=== PATIENT | female | born 1985 | race Caucasian/White ===

== ENCOUNTER → 2019-10-27 17:36 | Outpatient (CLI) | payer MEDICAID, SELFPAY ==
[2019-10-27 19:00] LABS: Alanine Aminotransferase 29 U/L (12-78); Albumin Level 4.4 g/dl (3.5-5.0); Albumin/Globulin Ratio 1.6 (1.1-1.8); Alkaline Phosphatase 129 U/L (38-126); Anion Gap 18.3 mEq/L (5-15); Aspartate Amino Transferase 27 U/L (14-36); Bilirubin,Total 0.4 mg/dl (0.2-1.3); Blood Urea Nitrogen 12 mg/dl (7-17); Calcium 9.9 mg/dl (8.4-10.2); Carbon Dioxide 22 mmol/L (22.0-30.0); Chloride 103 mmol/L (98-107); Estimated Glomerular Filt Rate 98 ml/min (>60); GFR (African American) 118 ML/MIN (>60); Globulin 2.8 g/dL (1.3-3.2); Glucose 163 mg/dl (74-100); Potassium 4.3 mmoL/L (3.5-5.1); Sodium 139 mmol/L (136-145); Total Protein,Serum 7.2 g/dl (6.3-8.2)
[2019-10-27 19:47] LABS: Hemoglobin A1C 6.5 % (4.0-6.0)
== END ==
PROVIDERS: Visit Provider Family Medicine
DX: E11.9 Type 2 diabetes mellitus without complications (principal); Z79.84 Long term (current) use of oral hypoglycemic drugs
CPT/HCPCS: 80053; 83036

== ENCOUNTER → 2020-09-11 11:29 | Outpatient (CLI) | payer MEDICAID, SELFPAY ==
--- NOTE | 2020-09-11 11:33 | XR_ITS ---
PROCEDURE: XR KUB CLINICAL INDICATION: KIDNEY STONE COMPARISON: No exams were available for comparison FINDINGS: There are numerous small right renal calculi in both upper and lower pole. No obvious left renal or ureteral calculi. IMPRESSION: Right nephrolithiasis Dictated by: Mukesh Lacy MD 09/11/2020 12:45 Mukesh Lacy MD in [place] 09/11/2020 12:45
== END ==
PROVIDERS: PCP Nurse Practitioner; Visit Provider Urology
DX: N20.0 Calculus of kidney (principal)
CPT/HCPCS: 74018

== ENCOUNTER → 2020-09-19 09:17 | Outpatient (CLI) | payer MEDICAID, SELFPAY ==
[2020-09-19 09:18] LABS: MANUAL DIFFERENTIAL MANUAL DIFFERENTIAL (MANUAL DIFF)
[2020-09-19 09:54] LABS: Basophils # 0.1 K/mm3 (0-0.2); Basophils % 0.8 % (0.1-2.0); Eosinophils # 0.3 K/mm3 (0.0-0.4); Eosinophils % 3.6 % (0.1-12.0); Hematocrit 38.1 % (37.0-47.0); Hemoglobin 12.5 g/dL (12.2-16.2); Lymphocytes # 2.6 K/mm3 (0.7-4.5); Lymphocytes % 27.8 % (10-50); Mean Corpuscular HGB Conc 32.7 g/dL (31.8-35.4); Mean Corpuscular Hemoglobin 28.3 pg (27.0-31.2); Mean Corpuscular Volume 86.4 fl (81-99); Mean Platelet Volume 7.7 fl (7.4-10.4); Monocytes # 0.6 K/mm3 (0.1-1.0); Neutrophils # 5.8 K/mm3 (1.8-7.8); Neutrophils % 61.8 % (37.0-80.0); Platelet Count 268 K/mm3 (142-424); Red Blood Count 4.41 M/mm3 (4.20-5.40); Red Cell Distribution Width 14.1 % (11.5-17.5); White Blood Count 9.4 K/mm3 (4.8-10.8)
[2020-09-19 10:25] LABS: Chloride 105 mmol/L (98-107)
[2020-09-19 10:26] LABS: Potassium 4.6 mmoL/L (3.5-5.1); Sodium 141 mmol/L (136-145)
[2020-09-19 10:29] LABS: Anion Gap 14.6 mEq/L (5-15); Blood Urea Nitrogen 9 mg/dl (7-17); Calcium 8.9 mg/dl (8.4-10.2); Carbon Dioxide 26 mmol/L (22.0-30.0); Estimated Glomerular Filt Rate 97 ml/min (>60); GFR (African American) 117 ML/MIN (>60); Glucose 146 mg/dl (74-100)
[2020-09-19 10:48] LABS: HCG,Quantitative < 2 mIU/ml (0-5.42)
[2020-09-19 14:20] LABS: Lymphocytes % 24 % (10-50); Monocytes % 5 % (2-9); Neutrophils % 71 % (42-76); Platelet Estimate Normal; RBC Morphology Normal; Total Cells Counted 100
== END ==
PROVIDERS: Visit Provider Urology
DX: Z01.812 Encounter for preprocedural laboratory examination (principal); Z11.52 Encounter for screening for COVID-19; N20.0 Calculus of kidney
CPT/HCPCS: 36415; 80048; 84702; 85007; 85014; 85018; 85048; 85049; U0003

== ENCOUNTER 2020-09-21 06:51 | Day surgery (SDC) | payer MEDICAID, SELFPAY ==
[2020-09-18 11:55] VITALS: BMI 35.2
[2020-09-21] VITALS (10 sets, daily range): BP systolic 111–136; BP diastolic 62–74; PULSE 84–105; RESP 16–20; TEMP 36.1–36.6; O2SAT 91–98
[2020-09-21 07:43] LABS: POC Glucose,Bedside 127 (70-110)
--- NOTE | 2020-09-21 08:47 | P.PN_ITS ---
[facility] Anesthesia Checklist - Patient Identification Patient Identification: Arm Band - Structural Data Admitted From: Home Planned Operative Procedure/s: Right ESWL Consent for Planned Operative Procedure(s) Verified: Yes Verified Documents: Surgical Consent, History and Physical - NPO Status Verified Time NPO: 00:00 - Additional verifications Anesthesia Reactions: No Hx Blood Transfusions: No Blood Transfusion Reaction: No - Airway Assessment C-Spine Mobility Assessed: Yes (mp2) TMJ Mobility Assessed: Yes Dentition: Good Dentition - Neurological Assessment Level of Consciousness: Awake, Alert - Anesthesia Plan Anesthesia Risk discussed: Yes Anesthesia Plan: Verified ASA Class: III Anesthesia Type: General [facility] History I have reviewed the patient's past medical history: Yes Medical History: Reports:: Anxiety, Depression, Diabetes Mellitus Type 2, Gastroesophageal Reflux Disease(GERD), Hypertension, Kidney Stones, Urinary Tract Infection Denies:: Cancer, Diabetes Mellitus Type 1, Internal Pacemaker, MRSA, Seizures *Have you ever received a pneumonia vaccine?: No *Have you received a flu vaccine this season?: Yes Other Medical History: Denies: Blood Transfusion Reaction Anesthesia experience/problems:: nac Laterality Cases: Bilateral: Myringotomy (Ear Tubes) Other Surgeries: Yes: Other. No: Pacemaker Amputation: No Fractures: No - *Social History Last grade of school completed: Advanced degree Smoking Status: Never smoker Alcohol Intake: never Substance Use Type: denies use *Occupational Status:: disabled Housing: house Household Members: family *Travel in the last 8 weeks: None - Psychiatric History Pschychiatric History:: Reports:: Anxiety, Depression Family Hx:: Diabetes, Kidney Disease, Stroke
--- NOTE | 2020-09-21 09:54 | HMH.ANESI ---
[facility] [place] Anesthesia Record Part I Intake, IV Amount: 900 Estimated blood loss (mL): 0 Urine output (mL): 0 Blood Pressure: 120/74 SaO2: 92 Pulse Rate: 102 Respiratory Rate: 16 Temperature: 98 F Patient is:: Drowsy, Stable Stable to PACU at:: 09:50
--- NOTE | 2020-09-21 09:59 | P.OP_ITS ---
Date of procedure: 09/21/20 Pre-op Diagnosis:: Right renal calculi Post-op Diagnosis:: Same Procedure performed:: Right ESWL Surgeon:: Steve Conti MD [employer]:: Steve Quiroz Anesthesia: LMA Estimated blood loss (mL): 0 Clinical Note:: 34-year-old white female with recent left renal colic is passed a small 2 mm distal left ureteral stone also noted to have right nephrolithiasis. He presents today for urologic management of multiple right renal calculi. Operative findings:: Stones noted in the right renal pelvis middle pole and lower pole. Operative note:: Room after informed consent was obtained. He was placed on the operating table in the supine position and general anesthesia administered. In the supine position she was padded appropriately and the lithotripter head brought up into position and under fluoroscopy the right kidney was imaged. There were calculi in the right renal pelvis and the right middle pole. Lithotripsy began at the most superior superior stone and 1200 shockwaves delivered to the the stone and another 1200 shockwaves delivered to the renal pelvic stone. Right lower pole stone was not visualized well and was not treated. A total of 3000 shockwaves delivered. Patient tolerated the procedure well there are no complications. She was transported to the recovery room without complication. Condition: stable Disposition: PACU Specimens:: None Complications:: None
[2020-09-21 10:09] LABS: POC Glucose,Bedside 150 (70-110)
--- NOTE | 2020-09-21 11:20 | P.PN_ITS ---
[facility] Anesthesia Record Part II Discharge Time: 10:20 Destination: Surgical Day Care (OP Surgery) PACU nurse assessment reviewed?: Yes Patient Condition:: Good Anesthesia Complications:: None Swallowing reflex intact?: Yes Cyanosis?: No Blood Pressure: 132/71 Pulse Rate: 86 Temperature: 97 F Mental Status: Alert & Oriented Pain level:: 0 Nausea and/or vomitting:: None Intake, IV Amount: 0
== END 2020-09-21 11:01 | disposition home or self-care (01) ==
LOC: OR 06:52
PROVIDERS: PCP Nurse Practitioner; Visit Provider Urology
PROC: (CPT 50590; principal; 2020-09-21 08:00)
DX: N20.0 Calculus of kidney (principal); N20.1 Calculus of ureter; Z87.440 Personal history of urinary (tract) infections; Z87.442 Personal history of urinary calculi; N13.2 Hydronephrosis with renal and ureteral calculous obstruction; E11.9 Type 2 diabetes mellitus without complications; I10 Essential (primary) hypertension; F41.9 Anxiety disorder, unspecified; F32.9 Major depressive disorder, single episode, unspecified; K21.9 Gastro-esophageal reflux disease without esophagitis; Z79.899 Other long term (current) drug therapy
CPT/HCPCS: 50590; 82962; 96374; J2405

== ENCOUNTER → 2020-10-18 14:14 | Outpatient (CLI) | payer MEDICAID, SELFPAY ==
--- NOTE | 2020-10-18 14:18 | XR_ITS ---
PROCEDURE: XR KUB CLINICAL INDICATION: kidney stone COMPARISON: CR XR KUB from 09/11/2020 FINDINGS: Small calculi are present in the mid lower aspect of the right kidney. No obvious ureteral calculi. No acute bony findings. Nonspecific bowel gas pattern. IMPRESSION: No change right nephrolithiasis Dictated by: Mukesh Lacy MD 10/18/2020 15:56 Mukesh Lacy MD in [place] 10/18/2020 15:56
== END ==
PROVIDERS: PCP Nurse Practitioner; Visit Provider Urology
DX: N20.0 Calculus of kidney (principal)
CPT/HCPCS: 74018

== ENCOUNTER → 2020-10-18 16:13 | Outpatient (CLI) | payer MEDICAID, SELFPAY ==
[2020-11-02 10:24] LABS: Specimen Type NOT PROVIDED
[2020-11-02 10:25] LABS: Composition Please see comment; Size 2X2
== END ==
PROVIDERS: Visit Provider Urology
DX: N20.0 Calculus of kidney (principal)
CPT/HCPCS: 82370

== ENCOUNTER → 2020-12-21 14:00 | Outpatient (CLI) | payer MEDICAID, SELFPAY ==
--- NOTE | 2020-12-21 14:06 | XR_ITS ---
PROCEDURE: XR KUB CLINICAL INDICATION: kidney stone COMPARISON: CR XR KUB from 10/18/2020 FINDINGS: Faint right renal calculi are present in the upper and lower pole. No obvious ureteral calculi. There is a linear area of small calcific densities at the L1-L2 level centrally and on the left which could be due to material within the stomach or could be due to chronic pancreatitis. CT may confirm. IMPRESSION: No change right nephrolithiasis. Multiple small focal hyperdensities in the central upper abdomen which could be due to material within the stomach or sequela from chronic pancreatitis Dictated by: Mukesh Lacy MD 12/21/2020 16:01 Mukesh Lacy MD in [place] 12/21/2020 16:01
== END ==
PROVIDERS: PCP Nurse Practitioner; Visit Provider Urology
DX: N20.0 Calculus of kidney (principal)
CPT/HCPCS: 74018

== ENCOUNTER → 2021-08-30 13:13 | Outpatient (CLI) | payer MEDICAID, SELFPAY ==
--- NOTE | 2021-08-30 13:19 | XR_ITS ---
FINAL REPORT CLINICAL HISTORY: F/U KIDNEY STONE COMPARISON: December 21, 2020 FINDINGS: SINGLE VIEW ABDOMEN A single view of the abdomen was obtained. Bowel gas and stool obscure the renal outline. There are no abnormally dilated loops of small bowel. There is a moderate to large amount of retained stool in the colon. There is no definite renal stone identified. IMPRESSION: No definite renal stone identified. Constipation. Reviewed, Interpreted and Dictated by Anderson Healy III, MD Transcribed by Sol Cheema Authenticated by Anderson Healy III, MD on 08/30/2021 02:39:39 PM [facility]
== END ==
PROVIDERS: Visit Provider Urology
DX: N20.0 Calculus of kidney (principal)
CPT/HCPCS: 74018

== ENCOUNTER → 2021-09-17 16:39 | Outpatient (CLI) | payer MEDICAID, SELFPAY ==
[2021-11-02 00:11] LABS: Ca oxalate dihydrate 50
== END ==
LOC: LAB 16:39 → LAB.DROPOF 16:45
PROVIDERS: Visit Provider Urology
DX: N20.0 Calculus of kidney (principal)
CPT/HCPCS: 82370

== ENCOUNTER → 2021-12-31 09:07 | Outpatient (CLI) | payer MEDICAID, SELFPAY ==
--- NOTE | 2021-12-31 09:09 | XR_ITS ---
FINAL REPORT CLINICAL HISTORY: kidney stone COMPARISON: 08/30/2021 FINDINGS: ABDOMEN SINGLE VIEW There is a nonspecific, nonobstructive bowel gas pattern. No bowel dilation is identified. There are 3 mm densities in projection of the mid right kidney, possibly related to kidney stones. There is a moderate amount of stool throughout the colon. IMPRESSION: Possible right renal stones. Reviewed, Interpreted and Dictated by Eddie Daily MD Transcribed by Bailey Combs Authenticated and [facility]
== END ==
PROVIDERS: Visit Provider Urology
DX: N20.0 Calculus of kidney (principal)
CPT/HCPCS: 74018

== ENCOUNTER 2023-03-23 16:29 | Emergency (ER) | payer MEDICAID, SELFPAY ==
[2023-03-23 16:50] VITALS: BP 164/97; PULSE 121; RESP 18; TEMP 37.1; O2SAT 95; BMI 36.6
--- NOTE | 2023-03-23 16:51 | EXP.UTC ---
Discharge Plan Disposition Patient Disposition: Home, Self-Care Condition: Good Prescriptions Prescriptions: New amoxicillin [amoxicillin] 875 mg tablet 875 mg PO Q12H Qty: 20 0RF benzonatate [benzonatate] 100 mg capsule 100 mg PO TIDP PRN (Reason: Cough) Qty: 30 0RF ibuprofen [IBU] 800 mg tablet 800 mg PO Q8HP PRN (Reason: Moderate Pain) Qty: 30 0RF No Action omeprazole 20 mg capsule,delayed release(DR/EC) 20 mg PO DAILY venlafaxine 150 mg capsule,extended release 24hr 150 mg PO DAILY quetiapine 200 mg tablet 200 mg PO DAILY oxcarbazepine 600 mg tablet 600 mg PO BID hydrochlorothiazide 25 mg tablet 25 mg PO AM Qty: 30 5RF venlafaxine 75 mg capsule,extended release 24hr 75 mg PO DAILY Patient Comments: TAKE ONE (1) CAPSULE BY MOUTH EVERY MORNING. TAKE WITH EFFEXOR XR 150 MG TO EQUAL 225 MG. metformin 500 MG tablet 500 mg PO BID lisinopril 20 MG tablet 20 mg PO BID Rx Instructions: TAKE 1 TABLET BY MOUTH DAILY. STOP NORVASC. Referrals Follow up/Referrals: Provider,Referral, MD [Primary Care Provider] - See instructions Activity Restrictions/Add. Instructions Additional Instructions/Restrictions: Drink plenty of fluids. Take tylenol or ibuprofen for pain or fever. Take the medications as directed. Follow up with your regular doctor. GO TO THE ER FOR ANY WORSENING SYMPTOMS Clinical Impressions Clinical Impression: Strep throat Instructions Patient Instructions: Strep Throat, DI for Strep Throat Discharge ED Provider: Froylan Meneses [facility] General Stated complaint: congestion fever Time Seen by Provider: 03/23/23 16:51 History of Present Illness Provider Complaint: She states that for the past 2 days she has had sore throat, chills, and malaise. She states that at this time she is also having low back pain. Related Data Home Medications Medication Instructions Recorded Confirmed omeprazole 20 mg capsule,delayed 20 mg PO DAILY GERD 10/27/19 03/23/23 release oxcarbazepine 600 mg tablet 600 mg PO BID mood 10/27/19 03/23/23 quetiapine 200 mg tablet 200 mg PO DAILY Depression 10/27/19 03/23/23 venlafaxine 150 mg 150 mg PO DAILY mood 10/27/19 03/23/23 capsule,extended release 24 hr lisinopril 20 mg tablet 20 mg PO BID bp 09/18/20 03/23/23 metformin 500 mg tablet 500 mg PO BID Diabetes 09/18/20 12/31/21 venlafaxine 75 mg capsule,extended 75 mg PO DAILY 03/23/23 03/23/23 release 24 hr Previous Rx's Medication Instructions Recorded hydrochlorothiazide 25 mg tablet 25 mg PO AM #30 tabs 11/12/21 amoxicillin 875 mg tablet 875 mg PO Q12H #20 tabs 03/23/23 benzonatate 100 mg capsule 100 mg PO TIDP PRN Cough #30 caps 03/23/23 ibuprofen 800 mg tablet (IBU) 800 mg PO Q8HP PRN Moderate Pain 03/23/23 #30 tabs Allergies Allergy/AdvReac Type Severity Reaction Status Date / Time No Known Allergies Allergy Verified 03/23/23 17:05 [facility] Disclaimer: The information contained in this section may have been updated after the patient was seen, as this information can be updated by other users. Social History Smoking Status: Never smoker alcohol intake: never substance use type: denies use current occupational status: disabled Travel in the last 8 weeks: None household members: family housing: house current occupational exposures/hazards: No caffeine: Yes ROS Obtained: Yes All systems reviewed & no additional complaints except as documented Constitutional Constitutional: Reports chills and Reports fever(s) Eyes Eyes: Denies eye discharge ENT Ears, Nose, Mouth, and Throat: Reports as per HPI Cardiovascular Cardiovascular: Denies chest pain Respiratory Respiratory: Denies chest congestion and Reports cough Gastrointestinal Gastrointestingal: Reports nausea; Denies abdominal pain, constipation, cramping, diarrhea or vomiti
[2023-03-23 17:04] LABS: Apearance,Urine Cloudy (Clear); Color,Urine Amber (Yellow); PH,Urine 5.5 (5.0-8.5); UTC Strep Screen (Rapid) Positive (Negative)
[2023-03-23 17:05] LABS: Bilirubin,Urine 3+ (Negative); Blood, Urine 3+ (Negative); Glucose,Urine (UA) 1000 (Negative); Ketones,Urine 80 (Negative); Protein,Urine 3+ (Negative); UTC Leukocyte Esterase,Urine Negative (Negative); UTC Nitrate,Urine Negative (Negative); Urobilinogen,Urine 1 EU/dl (0.2)
[2023-03-23 17:28] VITALS: BP 164/97; PULSE 121; RESP 18; TEMP 37.1; O2SAT 95
== END 2023-03-23 17:28 | disposition home or self-care (01) ==
PROVIDERS: Emergency Provider Nurse Practitioner Family
DX: J02.0 Streptococcal pharyngitis (principal); R07.0 Pain in throat; R50.9 Fever, unspecified; R53.81 Other malaise; R05.9 Cough, unspecified; R11.0 Nausea; M54.50 Low back pain, unspecified
CPT/HCPCS: 81003; 87880; 99204; 99212; G0463

== ENCOUNTER 2023-03-23 17:25 | Emergency (ER) | payer MEDICAID, SELFPAY ==
[2023-03-23 17:27] VITALS: BP 174/110; PULSE 120; RESP 18; TEMP 36.4; O2SAT 96; BMI 37.4
--- NOTE | 2023-03-23 17:58 | HMH.EDGENADL ---
Discharge Plan Disposition Patient Disposition: Home, Self-Care Condition: Good Prescriptions Prescriptions: New amoxicillin-pot clavulanate 875-125 mg tablet 1 tab PO BID 7 Days Qty: 14 0RF No Action omeprazole 20 mg capsule,delayed release(DR/EC) 20 mg PO DAILY venlafaxine 150 mg capsule,extended release 24hr 150 mg PO DAILY quetiapine 200 mg tablet 200 mg PO DAILY oxcarbazepine 600 mg tablet 600 mg PO BID hydrochlorothiazide 25 mg tablet 25 mg PO AM Qty: 30 5RF venlafaxine 75 mg capsule,extended release 24hr 75 mg PO DAILY Patient Comments: TAKE ONE (1) CAPSULE BY MOUTH EVERY MORNING. TAKE WITH EFFEXOR XR 150 MG TO EQUAL 225 MG. amoxicillin [amoxicillin] 875 mg tablet 875 mg PO Q12H Qty: 20 0RF benzonatate [benzonatate] 100 mg capsule 100 mg PO TIDP PRN (Reason: Cough) Qty: 30 0RF ibuprofen [IBU] 800 mg tablet 800 mg PO Q8HP PRN (Reason: Moderate Pain) Qty: 30 0RF metformin 500 MG tablet 500 mg PO BID lisinopril 20 MG tablet 20 mg PO BID Rx Instructions: TAKE 1 TABLET BY MOUTH DAILY. STOP NORVASC. Referrals Follow up/Referrals: Allan Shah MD [Primary Care Provider] - See instructions Activity Restrictions/Add. Instructions Additional Instructions/Restrictions: Please take augmentin as prescribed for UTI and possible kidney infection. This medication will also cover your strep throat. No need to take the amoxicillin prescribed by the urgent care. Please follow up with your PCP. return to pcp/ED with any new or worsening symptoms. Clinical Impressions Clinical Impression: Strep throat, UTI (urinary tract infection), Back pain Instructions Patient Instructions: DI for Low Back Pain Discharge ED Provider: Yousif Bailey General Adult HPI General Chief complaint: Back Pain/Injury Stated complaint: ? kidney stone, lower back pain Time Seen by Provider: 03/23/23 17:54 History of Present Illness HPI narrative: 37-year-old female, reported history of prior kidney stone, presents with concern for recurrent kidney stone. She reports that she was seen in urgent care just prior to arrival and was diagnosed with strep throat and prescribed amoxicillin. She reports that she has had intermittent fever. She reports left-sided low back pain and feels like she has in the past when she has passed a kidney stone. Denies any nausea or vomiting. Related Data Home Medications Medication Instructions Recorded Confirmed omeprazole 20 mg capsule,delayed 20 mg PO DAILY GERD 10/27/19 03/23/23 release oxcarbazepine 600 mg tablet 600 mg PO BID mood 10/27/19 03/23/23 quetiapine 200 mg tablet 200 mg PO DAILY Depression 10/27/19 03/23/23 venlafaxine 150 mg 150 mg PO DAILY mood 10/27/19 03/23/23 capsule,extended release 24 hr lisinopril 20 mg tablet 20 mg PO BID bp 09/18/20 03/23/23 metformin 500 mg tablet 500 mg PO BID Diabetes 09/18/20 12/31/21 venlafaxine 75 mg capsule,extended 75 mg PO DAILY 03/23/23 03/23/23 release 24 hr Previous Rx's Medication Instructions Recorded hydrochlorothiazide 25 mg tablet 25 mg PO AM #30 tabs 11/12/21 amoxicillin 875 mg tablet 875 mg PO Q12H #20 tabs 03/23/23 amoxicillin 875 mg-potassium 1 tab PO BID 7 days #14 tabs 03/23/23 clavulanate 125 mg tablet benzonatate 100 mg capsule 100 mg PO TIDP PRN Cough #30 caps 03/23/23 ibuprofen 800 mg tablet (IBU) 800 mg PO Q8HP PRN Moderate Pain 03/23/23 #30 tabs Allergies Allergy/AdvReac Type Severity Reaction Status Date / Time No Known Allergies Allergy Verified 03/23/23 17:05 [facility] Disclaimer: The information contained in this section may have been updated after the patient was seen, as this information can be updated by other users. Social History Smoking Status: Never smoker alcohol intake: never substance use type: denies use current occupational status: disabled Tra
--- NOTE | 2023-03-23 18:01 | PC.NURSE ---
DR OLSEN AT BEDSIDE
--- NOTE | 2023-03-23 18:09 | CT_ITS ---
PROCEDURE INFORMATION: Exam: CT Abdomen And Pelvis Without Contrast Exam date and time: 03/23/2023 6:59 PM Age: 37 years old Clinical indication: Abdominal pain; Flank; Left; Additional info: HX stones, left flank pain TECHNIQUE: Imaging protocol: Computed tomography of the abdomen and pelvis without contrast. Radiation optimization: All CT scans at this facility use at least one of these dose optimization techniques: automated exposure control; mA and/or kV adjustment per patient size (includes targeted exams where dose is matched to clinical indication); or iterative reconstruction. REPORTING DATA: Count of CT and Cardiac NM exams in prior 12 months: This patient has received 0 known CTs and 0 known cardiac nuclear medicine studies in the 12 months prior to the current study. COMPARISON: CR XR KUB 12/31/2021 9:13 AM FINDINGS: Lungs: The visualized lung bases are clear. Heart: There is a minor pericardial fluid collection present. Liver: The liver demonstrates punctate calcifications consistent with remote granulomatous organism exposure. Evaluation of the liver is limited without contrast but the liver is otherwise within normal limits for this noncontrast study. Gallbladder and bile ducts: Several calcified gallstones are present. No gallbladder wall thickening or pericholecystic fluid. Pancreas: Noncontrast images of the pancreas are within range of normal. Spleen: There is mild nonspecific splenomegaly. The spleen measures 15 cm in AP dimension. Adrenal glands: Normal. No mass. Kidneys and ureters: There are a few bilateral nonobstructing tiny renal collecting system calcifications. There is a 15 mm focal left renal hypodensity that cannot be further characterized on the current examination. Statistically, this is likely a cyst. Stomach and bowel: The colon is normal. The duodenum is unremarkable. Lack of gastrointestinal contrast limits evaluation of bowel. The stomach appears within range of normal.Prominent lipomatosis hypertrophy of the ileocecal valve is present Unopacified loops of small bowel appear within range of normal. Appendix: No evidence of appendicitis. A normal appendix is identified. Intraperitoneal space: There is no evidence of free intraperitoneal or pelvic fluid. No evidence of intraperitoneal free air. Vasculature: No abdominal aortic aneurysm. Lymph nodes: There is no evidence of pathologic adenopathy. Urinary bladder: The bladder is decompressed. Reproductive: The uterus is normal. The ovaries are normal. Bones/joints: There are mild degenerative changes of the hip joints. The thoracolumbar spine demonstrates mild degenerative changes at multiple levels. Soft tissues: There is a small fat-containing umbilical hernia. Other findings: Evaluation is limited by the lack of intravenous and gastrointestinal contrast. IMPRESSION: 1. Mild splenomegaly. 2. Cholelithiasis. 3. A few tiny nonobstructing bilateral renal collecting system calcifications. 5. Small fat-containing umbilical hernia. COMMENTS: Consistent with the [employer]'s Incidental Findings Committee white paper (J Am Nelsy Radiol 2018): Any incidental renal lesion less than 1 cm or classified as too small to characterize, or any incidental cystic renal lesion characterized as simple-appearing, is likely benign. No follow-up imaging is recommended for these lesions per consensus recommendations based on imaging criteria.
[2023-03-23 18:26] LABS: Microscopic, Urine URINE MICROSCOPIC (MICROSCOPIC)
[2023-03-23 18:33] LABS: Appearance,Urine CLEAR (Clear); Bilirubin,Urine 2+ (Negative); Blood, Urine 3+ (Negative); Color,Urine AMBER (Yellow); Glucose,Urine (UA) 2+ (Negative); Ketones,Urine 2+ (Negative); Leukocyte Esterase,Urine Negative (Negative); Nitrate,Urine POSITIVE (Negative); Protein,Urine 2+ (Negative); Specific Gravity, Urine >= 1.030 (1.005-1.030)
[2023-03-23 18:55] LABS: Bacteria,Urine 1+ /lpf
--- NOTE | 2023-03-23 19:28 | PC.NURSE ---
I rounded on the patient and asked if I could get her anything. Pt states she is doing okay, and has no new complaints at this time.
[2023-03-23 21:18] VITALS: BP 155/92; PULSE 97; RESP 18; TEMP 36.6; O2SAT 97
== END 2023-03-23 21:19 | disposition home or self-care (01) ==
PROVIDERS: Emergency Provider Emergency Medicine; PCP Family Medicine
DX: J02.0 Streptococcal pharyngitis (principal); N39.0 Urinary tract infection, site not specified; M54.50 Low back pain, unspecified
CPT/HCPCS: 74176; 81001; 87086; 96372; 96374; 99284; J0696